=== PATIENT | female | born 1950 | race Caucasian/White ===

== ENCOUNTER 2019-12-13 17:25 | Outpatient (CLI) | payer MEDICARE, SELFPAY ==
--- NOTE | ~2019-12-13 | XR_ITS ---
XR lumbar spine min 4V 12/13/2019 17:58 Indication: Low back pain. Recent fall. Procedure: 5 views lumbar spine Comparison: 04/29/2009 Findings: There is levoscoliosis centered at L3. There are facet degenerative changes at L2-3 through L5-S1. There is grade 1 degenerative spondylolisthesis at L4-5. There is disc narrowing at L4-5 and L5-S1. No acute fracture or traumatic malalignment is identified. Impression: 1: Moderate lumbar spondylosis with levoscoliosis. Reviewed, dictated and finalized at location A. Impression: 1: Moderate lumbar spondylosis with levoscoliosis.
--- NOTE | ~2019-12-13 | XR_ITS ---
XR hip LT 2V w AP pelvis 12/13/2019 17:58 Indication: Sciatica. Recent fall. Low back pain. Procedure: 3 views left hip including AP pelvis Comparison: No prior studies for comparison. Findings: There is lower lumbar spondylosis. There is osteitis pubis. No acute fracture or traumatic malalignment. Pelvic rings are intact. Sacral foramen are symmetric. No focal soft tissue abnormality . No foreign bodies. Impression: 1: No acute fracture. Reviewed, dictated and finalized at location A. Impression: 1: No acute fracture.
== END 2019-12-13 17:26 | disposition home or self-care (01) ==
PROVIDERS: PCP Family Medicine; Visit Provider Family Medicine
DX: M46.1 Sacroiliitis, not elsewhere classified (principal); M54.32 Sciatica, left side; M47.816 Spondylosis without myelopathy or radiculopathy, lumbar region; M41.86 Other forms of scoliosis, lumbar region
CPT/HCPCS: 72110; 73502

== ENCOUNTER 2020-02-11 13:14 | Outpatient (CLI) | payer MEDICARE, SELFPAY ==
--- NOTE | ~2020-02-11 | DEXA_ITS ---
Bone Density Report Name: Natalia Newman Age: 69 Sex: Female Ethnicity: White Date of : 1950 Indication: osteopenia; height loss;postmenopausal Referring Provider: Pattie Simpson Study: Bone densitometry was performed. Exam Date: February 11, 2020 Accession number: [id number] Bone Density: Region BMD T-score Z-score Classification AP Spine (L1-L4) 0.860 -1.7 0.4 Osteopenia Femoral Neck (Left) 0.676 -1.6 0.3 Osteopenia Total Hip (Left) 0.834 -0.9 0.6 Normal Total Hip Bilateral Avg 0.848 -0.8 0.8 Normal Femoral Neck (Right) 0.688 -1.4 0.4 Osteopenia Total Hip (Right) 0.861 -0.7 0.9 Normal World Health Organization criteria for BMD impression classify patients as: Normal (T-score at or above -1.0), Osteopenia (T-score between -1.0 and -2.5), or Osteoporosis (T-score at or below -2.5). 10-year Fracture Risk(1): Major Osteoporotic Fracture 9.8% Hip Fracture 1.4% Reported Risk Factors: [place] (), Neck BMD=0.676, BMI=29.7 (1) FRAX(R) Version 3.08. Fracture probability calculated for an untreated patient. Fracture probability may be lower if the patient has received treatment. Previous Exams: Region Exam Age BMD T-score BMD Change BMD Change Date g/cm2 vs Baseline vs Previous AP Spine(L1-L4) 02/11/2020 69 0.860 -1.7 -0.014(-1.5%)# 0.041(5.0%)* 02/17/2017 66 0.820 -2.1 -0.054(-6.2%)# -0.019(-2.2%)# 01/27/2012 61 0.838 -1.9 -0.036(-4.1%)# -0.003(-0.4%)# 06/17/2007 56 0.841 -1.9 -0.033(-3.7%)* -0.033(-3.7%)* 10/06/2002 52 0.874 -1.6 Total Hip(Left) 02/11/2020 69 0.834 -0.9 N/A -2.8% 02/17/2017 66 0.857 -0.7 N/A -2.8%# 01/27/2012 61 0.882 -0.5 N/A 0.3%# 06/17/2007 56 0.879 -0.5 N/A N/A 10/06/2002 52 N/A N/A Total Hip(Right) 02/11/2020 69 0.861 -0.7 -0.014(-1.6%)# -0.016(-1.8%) 02/17/2017 66 0.877 -0.5 0.002(0.2%)# 0.002(0.2%)# 01/27/2012 61 0.876 -0.5 0.000(0.0%)# -0.003(-0.3%)# 06/17/2007 56 0.878 -0.5 0.003(0.3%) 0.003(0.3%) 10/06/2002 52 0.875 -0.5 *Denotes significance at 95% confidence level, LSC for AP Spine = 0.022 g/cm2, LSC for Total Hip = 0.027 g/cm2 Clinical Information Provided by Patient: Has used the following medications: Calcium Patient maximum height was 62 Menopause Age: 49 Does not regularly consume dairy products Drinks caffeinated beverages Onset of menses at age 13 Number of children
--- NOTE | ~2020-02-11 | MM_ITS ---
EXAMINATION: MM diagnostic brooklynn RT w carmine HISTORY: Follow-up right breast mass TECHNIQUE: Additional 3-D tomosynthesis images of the right breast were performed and synthetic 2-D i mages were generated. CAD analysis was submitted and interpreted. High resolution right breast ultras ound was performed. COMPARISON: Comparison to multiple prior studies sequentially, with oldest reviewed study dated 11/08. FINDINGS: MAMMOGRAPHIC FINDINGS: Breast composed of scattered areas of fibroglandular density. Stable 4 mm radiolucent mass in the sub areolar location of the right breast, best seen on CC view. ULTRASOUND: Right breast ultrasound: At 2:00 in the periareolar location there is a 2 mm cyst. In the subareolar location superficially th ere is a 3 mm hypoechoic mass with posterior shadowing, likely complicated cysts with milk of calcium . IMPRESSION: 1. Probable benign findings of the right breast. 2. Recommend 6 month follow-up diagnostic bilateral mammogram and right breast ultrasound. BI-RADS category 3, probably benign findings. Reviewed, dictated and finalized at location A.
--- NOTE | ~2020-02-11 | US_ITS ---
Please refer to diagnostic mammogram report dated 02/11/2020 for details. Reviewed, dictated and finalized at location A.
== END 2020-02-11 13:15 | disposition home or self-care (01) ==
PROVIDERS: PCP Family Medicine; Visit Provider Physician Assistant
DX: Z78.0 Asymptomatic menopausal state (principal); R92.8 Other abnormal and inconclusive findings on diagnostic imaging of breast; M85.88 Other specified disorders of bone density and structure, other site; M85.852 Other specified disorders of bone density and structure, left thigh; M85.851 Other specified disorders of bone density and structure, right thigh
CPT/HCPCS: 76642; 77061; 77065; 77080; G0279

== ENCOUNTER → 2021-02-28 06:39 | Outpatient (CLI) | payer MEDICARE, SELFPAY ==
[2021-02-28 16:46] LABS: SARS-CoV-2 RNA PCR Negative
== END ==
PROVIDERS: PCP Family Medicine; Visit Provider Physician Assistant Medical
DX: R68.89 Other general symptoms and signs (principal); Z20.822 Contact with and (suspected) exposure to COVID-19
CPT/HCPCS: C9803; U0003; U0005

== ENCOUNTER 2021-03-16 02:00 | Day surgery (SDC) | payer MEDICARE, SELFPAY ==
[2021-02-26 14:03] VITALS: BMI 29.1
[2021-03-16 06:34] VITALS: BP 163/80; PULSE 87; RESP 16; TEMP 36.1; O2SAT 99
[2021-03-16] MEDS: LACTATED RINGERS 1,000 ML 150 ML IV CONT (06:41)
--- NOTE | 2021-03-16 06:44 | WPDANESEPPF ---
Anes - Initial Pre Proc Eval Procedure: Operation Date: 03/16/21 07:30 Proposed Procedures p Esophagogastroduodenoscopy & Screening Colonoscopy - Dorian Amor MD Date/Time: 03/16/21 06:44 Surgeon: Dorian Amor MD Pre Op Diagnosis: hx of colon polyps, dysphagia Patient Data Age: 70 Gender: F Height: 1.55 m Weight: 71.4 kg Last Vital Signs Temp 36.1 C L 03/16/21 06:34 Pulse 87 03/16/21 06:34 Resp 16 03/16/21 06:34 BP 163/80 H 03/16/21 06:34 Pulse Ox 99 03/16/21 06:34 Allergies Allergy/AdvReac Type Severity Reaction Status Date / Time terbinafine Allergy Mild RASH Verified 03/16/21 06:32 atorvastatin AdvReac Unknown stomach Verified 03/16/21 06:32 cramps Home Medications Medication Instructions Recorded Confirmed Type rosuvastatin 10 mg tablet 10 mg PO DAILY #90 tablet 02/23/21 02/26/21 Rx Cbd 15 mg PO DAILY 02/26/21 02/26/21 History calcium carbonate-vitamin D3 1 tablet PO DAILY 02/26/21 02/26/21 History multivit with min-folic acid 1 tablet PO DAILY 02/26/21 02/26/21 History [Adult One Daily Multivitamin] omeprazole 20 mg PO DAILY 02/26/21 02/26/21 History Patient hx anesthesia problems: none Family hx anesthesia problems: none PMFSH Past Medical History Medical History Abnormal colonoscopy (~10/28/08) polyps 12/2013 colonoscopy normal except internal hemmies. repeat 5 yrs/fidencio History of bone density study (~01/27/12) History of mammogram (~11/08/14) Pap smear vag w ASC-US (~10/18/11) Family History Family History Father Diabetes mellitus Hypertension Family history of elevated blood lipids Family history of coronary artery disease Mother Depression Family history of elevated blood lipids Sibling Hypertension Family history of elevated blood lipids Cerebrovascular accident Malignant neoplasm of prostate Family history of coronary artery disease Grandparent Cerebrovascular accident Social History Social History Smoking packs per day: 0.5 Smoking cigarettes per day: 10.0 Years smoked: 5 Smoking pack-years: 2.50 Smoking status: Never smoker Tobacco type: cigarettes Alcohol intake: current Drinks per week: 5 Living arrangements: alone Spiritual care concerns: No Anes - Eval Final PreProcedure Day of Procedure 03/16/21 06:44 Patient weight: overweight Heart: regular rate and rhythm Lungs: clear to auscultation Airway: Mallampati scale class II Neurological: alert and oriented Last oral intake: >/= 8 hours ASA classification: II Emergent: no Anesthetic plan: proceed Anesthesia type and monitoring: general GIVS and standard monitoring Informed Consent: The patient's anesthetic plan and its attendant risks and benefits were discussed with the patient/family/POA. Questions were solicited and answers provided to the satisfaction of the patient/family/POA.
--- NOTE | 2021-03-16 07:30 | WPDGICN ---
Assessment and Plan Assessment and plan (1) Dysphagia: Qualifiers: Dysphagia type: pharyngoesophageal phase Qualified Code(s): R13.14 - Dysphagia, pharyngoesophageal phase Code(s): R13.10 - Dysphagia, unspecified Status: Acute Assessment and Plan: Patient is reported to have some difficulty swallowing. Particularly notices large pills. Plan is to pursue EGD given her history of ongoing acid reflux. Further recommendations will be given after endoscopy. (2) Gastroesophageal reflux disease without esophagitis: Code(s): K21.9 - Gastro-esophageal reflux disease without esophagitis Status: Acute (3) History of colon polyps: Code(s): Z86.010 - Personal history of colonic polyps Status: Acute Assessment and Plan: Patient has a prior history of colon polyps in 2013. Plan is for surveillance colonoscopy at this time. Further recommendations will be given after endoscopy GI Consult Note Consult date/time: 03/16/21 07:30 HPI: Natalia Newman is a 70 year old female Seen in evaluation at the request of Dr. Belcher. Patient has a history of colon polyps. She states that her current weight appetite bowel movements are normal. She denies abdominal pain. She has had no bleeding. Family history is noncontributory. She presents today for follow-up colonoscopy. Last exam was 7 years ago. Additionally patient complains of difficulty swallowing large pills. She was diagnosed with acid reflux approximately 1-1/2 years ago. She has had difficulty reclining and night apparently has indigestion and reflux difficulties. This is improved on taking PPI therapy she has remained on this throughout the last year. Currently she denies any heartburn. She has had no bleeding or weight loss. Review of Systems Review of Systems: All systems reviewed & are unremarkable except as noted in HPI and below [facility] Past Medical History Medical History (Updated 03/16/21 @ 07:32 by Dorian Amor MD) Abnormal colonoscopy (~10/28/08) polyps 12/2013 colonoscopy normal except internal hemmies. repeat 5 yrs/fidencio History of bone density study (~01/27/12) History of mammogram (~11/08/14) Pap smear vag w ASC-US (~10/18/11) Family History Family History Father Diabetes mellitus Hypertension Family history of elevated blood lipids Family history of coronary artery disease Mother Depression Family history of elevated blood lipids Sibling Hypertension Family history of elevated blood lipids Cerebrovascular accident Malignant neoplasm of prostate Family history of coronary artery disease Grandparent Cerebrovascular accident Social History Social History Smoking packs per day: 0.5 Smoking cigarettes per day: 10.0 Years smoked: 5 Smoking pack-years: 2.50 Smoking status: Never smoker Tobacco type: cigarettes Alcohol intake: current Drinks per week: 5 Living arrangements: alone Spiritual care concerns: No Meds Home Medications and Allergies Home Medications Medication Instructions Recorded Confirmed Type rosuvastatin 10 mg tablet 10 mg PO DAILY #90 tablet 02/23/21 02/26/21 Rx Cbd 15 mg PO DAILY 02/26/21 02/26/21 History calcium carbonate-vitamin D3 1 tablet PO DAILY 02/26/21 02/26/21 History multivit with min-folic acid 1 tablet PO DAILY 02/26/21 02/26/21 History [Adult One Daily Multivitamin] omeprazole 20 mg PO DAILY 02/26/21 02/26/21 History Allergies Allergy/AdvReac Type Severity Reaction Status Date / Time terbinafine Allergy Mild RASH Verified 03/16/21 06:32 atorvastatin AdvReac Unknown stomach Verified 03/16/21 06:32 cramps Vital Signs Vital Signs - 24 hr 03/16/21 06:34 Temperature 97.0 F L Pulse Rate 87 Respiratory Rate 16 Blood Pressure 163/80 H Pulse Oximetry 99 Exam Narrative: Physical exam
[2021-03-16 07:57] VITALS: BP 114/70; PULSE 79; O2SAT 98
[2021-03-16 08:07] VITALS: BP 120/73; PULSE 78; O2SAT 98
[2021-03-16 08:17] VITALS: BP 133/76; PULSE 78; O2SAT 98
== END 2021-03-16 08:32 | disposition home or self-care (01) ==
PROVIDERS: PCP Family Medicine; Visit Provider Internal Medicine Gastroenterology
PROC: 0DJ08ZZ Inspection of Upper Intestinal Tract, Via Natural or Artificial Opening Endoscopic (ICD-10-PCS; CPT 43235; principal; 2021-03-16 07:30)
DX: Z12.11 Encounter for screening for malignant neoplasm of colon (principal); K64.8 Other hemorrhoids; Z86.010 Personal history of colon polyps; R13.10 Dysphagia, unspecified; K21.9 Gastro-esophageal reflux disease without esophagitis
CPT/HCPCS: G0105; J2704; J7120

== ENCOUNTER 2021-03-27 15:23 | Outpatient (CLI) | payer MEDICARE, SELFPAY ==
--- NOTE | ~2021-03-27 | XR_ITS ---
EXAMINATION:XR cervical spine 4-5V DATE: 03/27/2021 15:44 INDICATION: Unspecified disturbance of skin sensation TECHNIQUE: AP, lateral, lateral swimmers and open-mouth and submental odontoid views of the cervical spine are provided. COMPARISON: None FINDINGS: Unchanged 3 mm retrolisthesis C5 on C6 and 2 mm retrolisthesis C6 on C7. Odontoid is intact. Normal atlantoaxial interval. Vertebral body heights are normal. Mild disc height loss at C4-C5 and moderate disc height loss at C5-C6 and C6-C7. There has been some interval progression of now mild to moderat e multilevel bilateral cervical facet osteoarthritis which is most prominent on the right at C3-C4. P ersistent mild central canal stenosis at C6-C7 and more prominently at C5-C6 resulting from the mild spondylolisthesis and posterior endplate osteophytes. Prevertebral soft tissues are normal. IMPRESSION: 1. Moderate cervical spondylosis with slight interval progression in now mild to moderate multilevel cervical facet osteoarthritis. Reviewed, dictated and finalized at location A. IMPRESSION: 1. Moderate cervical spondylosis with slight interval progression in now mild t o moderate multilevel cervical facet osteoarthritis.
== END 2021-03-27 15:24 | disposition home or self-care (01) ==
LOC: ANHIMG 15:28
PROVIDERS: PCP Family Medicine; Visit Provider Family Medicine
DX: R20.9 Unspecified disturbances of skin sensation (principal); M47.892 Other spondylosis, cervical region; M50.30 Other cervical disc degeneration, unspecified cervical region
CPT/HCPCS: 72050

== ENCOUNTER 2021-04-22 12:27 | Outpatient (CLI) | payer MEDICARE, SELFPAY ==
--- NOTE | ~2021-04-22 | MMUS_ITS ---
EXAMINATION: MM diagnostic brooklynn BI w carmine, US breast RT limited HISTORY: Overdue follow-up for probably benign right breast mass TECHNIQUE: Craniocaudal, mediolateral, and mediolateral oblique 3-D tomosynthesis images of the breas ts were performed and synthetic 2-D images were generated. CAD analysis was submitted and interpreted . High resolution limited right breast ultrasound was performed. COMPARISON: 02/11/2020, 05/03/2019, 04/30/2019, 03/11/2017, 03/01/2017 BREAST PARENCHYMAL COMPOSITION: There are scattered areas of fibroglandular density. FINDINGS: MAMMOGRAPHIC FINDINGS: Right breast: There is a stable 3 mm mass at the 12:00 location in the middle third of the right malaika st 3.5 cm from the nipple. There has been no suspicious interval change. Left breast: There is no evidence of suspicious mass, calcification, or architectural distortion to suggest malignancy. There has been no suspicious interval change. ULTRASOUND: There is no evidence of focal abnormal solid or cystic mass in the vicinity of the mammographic findi ng in question. IMPRESSION: 1. Right breast mass with two years of interval stability, consistent with a benign finding. 2. Recommend routine screening mammography in one year. BI-RADS Category 2: Benign finding(s). Reviewed, dictated and finalized at location B. IMPRESSION: 1. Right breast mass with two years of interval stability, consistent with a be nign finding. 2. Recommend routine screening mammography in one year. BI-RADS Category 2: Benign finding(s).
== END 2021-04-22 12:28 | disposition home or self-care (01) ==
PROVIDERS: PCP Family Medicine; Visit Provider Family Medicine
DX: R92.8 Other abnormal and inconclusive findings on diagnostic imaging of breast (principal)
CPT/HCPCS: 76642; 77062; 77066; G0279

== ENCOUNTER 2021-09-30 08:34 | Outpatient (CLI) | payer MEDICARE, SELFPAY ==
--- NOTE | 2021-10-05 13:26 | WPDHOLTEREM ---
Holter/Event Monitor Holter/Event Monitor Date of procedure: 09/30/21 Holter/Event Procedure: 48 Hr Holter Monitor Indications: Palpitations, SOB Conclusion: 1. 48 hour holter monitor on 09/30/21. 2. Predominant rhythm is sinus rhythm. HR range 52-109 bpm; average HR 72 bpm. 3. There are 50 premature supraventricular complexes and 1 supraventricular couplet. There are 2 episodes of atrial tachycardia, fastest at 164 bpm and longest lasting 4 beats. 4. There is 1 premature ventricular complex. No ventricular tachycardia. 5. No sinoatrial or atrioventricular blocks. No significant pauses greater than 2 seconds. 6. No symptoms available for correlation.
== END 2021-09-30 08:35 | disposition home or self-care (01) ==
PROVIDERS: PCP Family Medicine; Visit Provider Family Medicine
DX: R00.2 Palpitations (principal); R73.03 Prediabetes; E78.2 Mixed hyperlipidemia; E66.09 Other obesity due to excess calories
CPT/HCPCS: 93225; 93226

== ENCOUNTER 2021-10-07 07:04 | Outpatient (CLI) | payer MEDICARE, SELFPAY ==
--- NOTE | 2021-10-07 | EST_ITS ---
Patient Info Name: Natalia Newman Age: 71 years : 1950 Gender: Female Ht: 60 in Wt: 158 lbs BSA: 1.77 m2 HR: 66 bpm BP: 150 / 82 mmHg Heart Rhythm: Sinus Rhythm Exam Date: 10/07/2021 8:17 AM Exam Location: [facility] Stress Patient Status: Outpatient Admit Date: 10/07/2021 Staff Ordering Physician: Corina Belcher MD Attending Provider: Corina Belcher MD Exercise Technologist: Julieth Merida CT Exercise Physician: Gen James DO Exam Type: CA stress kaity w NM Study Info Indications R00.2 - Palpitations A regadenoson stress test was performed. Summary 1. 1. Abnormal Lexiscan stress test for ischemic ST changes by ECG criteria. 2. 2. Baseline hypertension. 3. 3. Nuclear scan to follow and will be reported separately. Please correlate with it. 4. 4. Patient informed of the above results. Protocol: Lexiscan Stress ECG Details Stage: REST Duration (min): 1 min : 21 sec HR (bpm): 78 SBP (mmHg): 150 DBP (mmHg): 82 Stage: REST Duration (min): 4 min : 46 sec HR (bpm): 63 SBP (mmHg): 150 DBP (mmHg): 82 Stage: REST Duration (min): 19 min : 20 sec HR (bpm): 68 SBP (mmHg): 150 DBP (mmHg): 82 Stage: STAGE 1 Duration (min): 1 min : 0 sec HR (bpm): 100 SBP (mmHg): 150 DBP (mmHg): 82 Stage: RECOVERY Duration (min): 1 min : 0 sec HR (bpm): 90 SBP (mmHg): 164 DBP (mmHg): 75 Stage: RECOVERY Duration (min): 2 min : 0 sec HR (bpm): 81 SBP (mmHg): 164 DBP (mmHg): 75 Stage: RECOVERY Duration (min): 3 min : 0 sec HR (bpm): 80 SBP (mmHg): 150 DBP (mmHg): 76 Stage: RECOVERY Duration (min): 3 min : 7 sec HR (bpm): 80 SBP (mmHg): 150 DBP (mmHg): 76 Rest HR: 68 bpm Peak HR: 100 bpm Rest Sys BP: 150 mmHg Peak Sys BP: 164 mmHg Max Pred HR: 148 bpm % Max Pred HR: 68 % Target HR: 126 bpm Max RPP: 16,400 bpm*mmHg Termination Reason: Completed protocol Cardiac Symptoms: Shortness of breath Total Time: 1 min : 0 sec Rest Jasso BP: 82 mmHg Peak Jasso BP: 75 mmHg Total Dose: 0.4 mg Resting ECG Sinus rhythm. Stress ECG 1-[address] depression in II, III, avF, V3-V6. Arrhythmias None. Report Signatures
--- NOTE | ~2021-10-07 | NM_ITS ---
EXAMINATION: NM kaity stress w perfusion DATE: 10/07/2021 10:40 COSTUME SPECIALIST INDICATION: Shortness of breath. Chest palpitations TECHNIQUE: Rest images were obtained following intravenous administration of 10.5 mCi Tc99m tetrofosm in (Myoview). The patient was infused intravenously with Lexiscan (regadenoson). Then, 31 mCi Tc99m t etrofosmin (Myoview) was administered intravenously, and stress images were obtained. Data was recons tructed into short axis and horizontal and vertical long axis SPECT images. Gated SPECT images were a lso obtained. COMPARISON: None. FINDINGS: There is no definite reversible or fixed perfusion abnormality to suggest ischemia or infar ction. There is no segmental wall motion abnormality. Left ventricular ejection fraction measures 6 9%. IMPRESSION: 1. No definite ischemia or infarct. 2. Normal left ventricular ejection fraction measuring 69%. Reviewed, dictated and finalized at location B. UME SPECIALIST
== END 2021-10-07 07:05 | disposition home or self-care (01) ==
PROVIDERS: PCP Family Medicine; Visit Provider Family Medicine
DX: R00.2 Palpitations (principal); R73.03 Prediabetes; R94.31 Abnormal electrocardiogram [ECG] [EKG]; E78.2 Mixed hyperlipidemia; E66.09 Other obesity due to excess calories; Z82.49 Family history of ischemic heart disease and other diseases of the circulatory system
CPT/HCPCS: 78452; 93017; A9502; J2785

== ENCOUNTER 2022-12-20 14:38 | Outpatient (CLI) | payer MEDICARE, SELFPAY ==
--- NOTE | ~2022-12-20 | MM_ITS ---
EXAMINATION: MM screening [facility] BI w carmine HISTORY: Screening mammogram TECHNIQUE: Craniocaudal and mediolateral oblique 3-D tomosynthesis images were obtained and synthetic 2-D images were generated. CAD analysis was submitted and interpreted. COMPARISON: 04/22/2021, 02/11/2020, 05/03/2019, 04/30/2019, 03/01/2017 BREAST PARENCHYMAL COMPOSITION: There are scattered areas of fibroglandular density. FINDINGS: No suspicious mass, calcification, or architectural distortion are identified in either sarah ast to suggest malignancy. There has been no suspicious interval change. IMPRESSION: 1. No mammographic evidence of malignancy. 2. Recommend routine screening mammography in one year. BI-RADS Category 1: Negative Reviewed, dictated and finalized at location A.
--- NOTE | ~2022-12-20 | DEXA_ITS ---
Bone Density Report Name: SHANNON GOODMAN Age: 72 Sex: Female Ethnicity: White Date of : 1950 Indication: osteopenia; height loss; cancer; postmenopausal Referring Provider: LOUISE MOULTON Study: Bone densitometry was performed. Exam Date: December 20, 2022 Accession number: [id number] Bone Density: Region BMD T-score Z-score Classification AP Spine(L1-L4) 0.865 -1.7 0.6 Osteopenia Femoral Neck (Left) 0.688 -1.5 0.5 Osteopenia Total Hip (Left) 0.851 -0.7 0.9 Normal Femoral Neck (Right) 0.688 -1.5 0.5 Osteopenia Total Hip (Right) 0.848 -0.8 0.9 Normal Total Hip Mean 0.849 -0.8 0.9 Normal World Health Organization criteria for BMD impression classify patients as: Normal (T-score at or above -1.0), Osteopenia (T-score between -1.0 and -2.5), or Osteoporosis (T-score at or below -2.5). 10-year Fracture Risk(1): Major Osteoporotic Fracture 10% Hip Fracture 1.7% Reported Risk Factors: [place] (), Neck BMD=0.688, BMI=29.3 (1) FRAX(R) Version 3.08. Fracture probability calculated for an untreated patient. Fracture probability may be lower if the patient has received treatment. Previous Exams: Region Exam Age BMD T-score BMD Change BMD Change Date g/cm2 vs Baseline vs Previous AP Spine (L1-L4) 12/20/2022 72 0.865 -1.7 0.026 (3.1%)# 0.004 (0.5%) 02/11/2020 69 0.860 -1.7 0.022 (2.7%)# 0.041 (5.0%)* 02/17/2017 66 0.820 -2.1 -0.019 (-2.2%) -0.019 (-2.2%) 01/27/2012 61 0.838 -1.9 Total Hip(Left) 12/20/2022 72 0.851 -0.7 -0.031 (-3.6%) 0.017 (2.0%) 02/11/2020 69 0.834 -0.9 -0.048 (-5.5%) -0.024 (-2.8%) 02/17/2017 66 0.857 -0.7 -0.025 (-2.8%) -0.025 (-2.8%) 01/27/2012 61 0.882 -0.5 Total Hip(Right) 12/20/2022 72 0.848 -0.8 -0.028 (-3.1%) -0.013 (-1.5%) 02/11/2020 69 0.861 -0.7 -0.015 (-1.7%) -0.016 (-1.8%) 02/17/2017 66 0.877 -0.5 0.002 (0.2%)# 0.002 (0.2%)# 01/27/2012 61 0.876 -0.5 *Denotes significance at 95% confidence level, LSC for AP Spine = 0.022 g/cm2, LSC for Total Hip = 0.027 g/cm2 # Denotes dissimilar scan types or analysis methods Clinical Information Provided by Patient: Has used the following medications: Vitamin D, Calcium Has the following medical conditions: Cancer Patient maximum height was 62 Menopause Age: 49 Drinks caffeinated beverages Onset of menses at age 13 Number of children 3 Impression: The patient bledsoe
== END 2022-12-20 14:39 | disposition home or self-care (01) ==
LOC: ANHIMG 14:39
PROVIDERS: PCP Family Medicine; Visit Provider Physician Assistant
DX: Z12.31 Encounter for screening mammogram for malignant neoplasm of breast (principal); Z78.0 Asymptomatic menopausal state; M85.88 Other specified disorders of bone density and structure, other site; M85.852 Other specified disorders of bone density and structure, left thigh; M85.851 Other specified disorders of bone density and structure, right thigh
CPT/HCPCS: 77063; 77067; 77080

== ENCOUNTER 2025-02-21 13:47 | Outpatient (CLI) | payer MEDICARE, SELFPAY ==
--- OUTSIDE RECORDS SUMMARY | 2025-02-21 13:53 | XMS_ITS | Referral Summary ---
Author [place] [facility] [place] [address] Address [address] [place] [id number] Care Team Providers Care Nuclear Process Engineer Name Role Phone Corina Belcher MD Primary Care Provider + Encounters Date Type Department Care Team Description 01/23/2025 Orders Only [facility] Medical [facility] Orthopedic and Sports Medicine [address] [place] [phone] Jose Weeks MD Nontraumatic complete tear of right rotator cuff (Primary Dx); Nontraumatic tear of left rotator cuff, unspecified tear extent; Biceps tendinitis of left upper extremity; Arthritis of both acromioclavicular joints 01/23/2025 Orders Only [facility] Orthopedic [facility] Sports Medicine [address] [place] [phone] Jose Weeks MD Nontraumatic tear of left rotator cuff, unspecified tear extent (Primary Dx); Nontraumatic complete tear of right rotator cuff; Biceps tendinitis of left upper extremity; Arthritis of both acromioclavicular joints 01/23/2025 Orders Only [facility] Orthopedic [facility] Sports Medicine [address] [place] [phone] Jose Weeks MD 01/23/2025 1:00 PM CDT Office Visit [facility] Medical [facility] Orthopedic and Sports Medicine [address] [place] [phone] Jose Weeks MD Nontraumatic tear of left rotator cuff, unspecified tear extent (Primary Dx); Nontraumatic complete tear of right rotator cuff from Last 3 Months Allergies Active Allergy Reactions Criticality Noted Date Comments Unclassified Drug Stomach upset Low 10/14/2023 Antibotic Medications omeprazole (PriLOSEC) 20 mg capsule 1 Active rosuvastatin (CRESTOR) 10 mg tablet 1 Active metoprolol tartrate (LOPRESSOR) 25 mg immediate release tablet Take 0.5 tablets (12.5 mg total) by mouth 2 (two) times a day 2 Active sertraline (ZOLOFT) 25 mg tablet Take 1 tablet (25 mg total) by mouth daily 2 Active albuterol (PROAIR RESPICLICK) 90 mcg/actuation inhaler Inhale 2 puffs every 6 (six) hours as needed for wheezing Active aspirin 81 mg enteric coated tablet Take 1 tablet (81 mg total) by mouth daily Active UNABLE TO FIND Take 50 each by mouth daily Med Name: CBD Active diclofenac epolamine (FLECTOR) 1.3 %Indications:S prains and Strains Place 1 patch on the skin Active multivit with min-folic acid 0.4 mg tablet Take by mouth Active predniSONE (DELTASONE) 50 mg tablet 5 Active meloxicam (MOBIC) 15 mg tablet Take 1 tablet (15 mg total) by mouth daily 42 tablet [address] (VOLTAREN) 75 mg EC tablet Take 1 tablet (75 mg total) by mouth 2 (two) times a day 60 tablet 4 025 Discontinued Active Problems Problem Noted Date Diagnosed Date Palpitations 10/14/2023 Hyperlipidemia 10/14/2023 Carpal tunnel syndrome 03/04/2011 Social History Tobacco Use Types Packs/Day Years Used Date Smoking Tobacco: Never Smokeless Tobacco: Never AUDIT-C Answer Date Recorded Q1: How often do you have a drink containing alc ohol? 2-4 times a month 08/22/2021 Average Number of Drinks Not on file 022 Frequency of Binge Drinking Not on file 03/2022 Comments Unknown Sex and Gender Information Value Date Recorded Sex Assigned at Not on file Legal Sex Female 8:48 AM TALENT SCOUT Gender Identity Female 12/07/2024 9:42 PM CDT Sexual Orientation Not on file Last Filed Vital Signs Vital Sign Reading Time Taken Comments Blood Pressure 132/71 01/23/2025 12:56 PM CDT Pulse 84 01/23/2025 12:56 PM CDT Temperature 37 C (98.6 F) 09/28/2024 4:00 PM TALENT SCOUT Respiratory Rate 20 09/28/2024 4:00 PM TALENT SCOUT Oxygen Saturation 98% 09/28/2024 4:00 PM TALENT SCOUT Inhaled Oxygen Concentration - - Weight 71.2 kg (157 lb) 01/23/2025 12:56 PM CDT Height 154.9 cm (5' 1) 01/23/2025 12:56 PM CDT Body Mass Index 29.66 01/23/2025 12:56 PM CDT Plan of Treatment Not on file Insurance UHC MEDICARE ADVANTAGE [facility] MEDICARE Care Teams Nuclear Process Engineer Relationship Specialty Start Date End Date Corina Belcher MD PCP - General Family Medicine 03/12/22
--- OUTSIDE RECORDS SUMMARY | 2025-02-21 13:53 | XMS_ITS | Clinical Summary ---
Author Organization [facility] [address] Address [address] [place] [phone] Care Team Providers Care Digital Computer Systems Analyst Name Role Phone Corina Belcher MD Primary Care Provider + Allergies Active Allergy Reactions Criticality Noted Date [...] 10/14/2023 Hyperlipidemia 10/14/2023 Carpal tunnel syndrome 03/04/2011 Encounters Date Type Department Care Team Description 01/23/2025 1:00 PM CDT Office Visit [facility] Orthopedic and Sports Medicine [address] [place] [phone] Jose Weeks MD Nontraumatic tear of left rotator cuff, unspecified tear extent (Primary Dx); Nontraumatic complete tear of right rotator cuff 01/23/2025 Orders Only [facility] Orthopedic [facility] Sports Medicine [address] [place] [phone] Jose Weeks MD Nontraumatic complete tear of right rotator cuff (Primary Dx); Nontraumatic tear of left rotator cuff, unspecified tear extent; Biceps tendinitis of left upper extremity; Arthritis of both acromioclavicular joints 01/23/2025 Orders Only [facility] Orthopedic and Sports Medicine [address] [place] [phone] Jose Weeks MD Nontraumatic tear of left rotator cuff, unspecified tear extent (Primary Dx); Nontraumatic complete tear of right rotator cuff; Biceps tendinitis of left upper extremity; Arthritis of both acromioclavicular joints 01/23/2025 Orders Only [facility] Orthopedic [facility] Sports Medicine [address] [place] [phone] Jose Weeks MD from Last 3 Months Surgical History Surgery Date Site/Laterality Comments CARPAL TUNNEL RELEASE Medical History Medical History Date Comments Osteoarthritis Cataracts, bilateral Anxiety Osteoarthritis Family History Medical History Relation Name Comments Heart disease Father Hypertension Sister Relation Name Status Comments Father Sister Alive Social History Tobacco Use Types Packs/Day Years [...] on file Legal Sex Female 8:48 AM IS MANAGER Gender Identity Female 12/07/2024 9:42 PM CDT Sexual Orientation Not on file Obstetrics History Last Filed Vital Signs Vital Sign Reading Time Taken Comments Blood Pressure 132/71 01/23/2025 12:56 PM CDT Pulse 84 01/23/2025 12:56 PM CDT Temperature 37 C (98.6 F) 09/28/2024 4:00 PM IS MANAGER Respiratory Rate 20 09/28/2024 4:00 PM IS MANAGER Oxygen Saturation 98% 09/28/2024 4:00 PM IS MANAGER Inhaled Oxygen Concentration - - Weight 71.2 kg (157 lb) 01/23/2025 12:56 PM CDT Height 154.9 cm (5' 1) 01/23/2025 12:56 PM CDT Body Mass Index 29.66 01/23/2025 12:56 PM CDT Plan of Treatment Health Maintenance Due Date Last Done Comments Colon Cancer Screening-Colonoscopy 1949 Depression Screening 1949 Fall Risk Assessment 1949 Hepatitis C Screening 1949 Osteoporosis Screening-Bone Density Scan 1949 Hepatitis B Screening 1967 Pneumococcal vaccine 65+ (1 of 1 - PCV) 1999 Zoster Vaccine (1 of 2) 1999 DTaP/Tdap/Td Vaccine (1 - Tdap) 07/11/2001 1 Well Visit 65+ 2014 Covid-19 Vaccine ( season) 2024 04/15/2021, 10/12/2020, 09/20/2020 Influenza Vaccine (Season Ended) 2025 05/10/2020, 04/25/2019, 05/24/2018 Insurance UHC MEDICARE ADVANTAGE [facility]LY [facility] MEDICARE Care Teams Digital Computer Systems Analyst Relationship Specialty Start Date End Date Corina Belcher MD PCP - General Family Medicine 03/12/22
--- OUTSIDE RECORDS SUMMARY | 2025-02-21 13:53 | XMS_ITS | Clinical Summary ---
Author Organization [facility] Care Team Providers Care Fiberglass Boat Finisher Name Role Phone Unavailable Primary Care Provider Unavailabl e Social History Tobacco Use Types Packs/Day Years Used Date Smoking Tobacco: Never Assessed Comments Unknown Sex and Gender Information Value Date Recorded Sex Assigned at Not on file Legal Sex Female 10:47 PM CDT Gender Identity Not on file Sexual Orientation Not on file Plan of Treatment Health Maintenance Due Date Last Done Comments DEXA Bone Density 1950 Hepatitis C Virus (HCV) Screening 1949 TdaP Immunization 1949 Colonoscopy 1994 Colorectal Cancer Screening 1994 Cologuard 1999 Immunochemical Fecal Occult Blood 1999 Mammogram 1999 Pneumococcal Immunization (50+ years) (1 of 1 - PCV) 1999 Zoster Immunization (1 of 2) 1999 Influenza Immunization (#1) 2024 SARS-COV-2 Immunization ( season) 2024 11/21/2021, 04/15/2021, 10/12/2020, Additional history exists Respiratory Syncytial Virus (RSV) Immunization (Adult) (1 - 1-dose 75+ series) 2024 Hepatitis B Immunization Aged Out No longer eligible based on patient's age to complete this topic Meningococcal Immunization (ACWY) Aged Out No longer eligible based on patient's age to complete this topic Rotavirus Immunization Aged Out No lo nger eligible based on patient's age to complete this topic
[2025-02-21 22:06] LABS: Vitamin B12 506.0 pg/mL (239-931)
== END 2025-02-21 13:48 | disposition home or self-care (01) ==
LOC: ANHGOSHLAB 13:48
PROVIDERS: PCP Family Medicine; Visit Provider Family Medicine
DX: G62.9 Polyneuropathy, unspecified (principal)
CPT/HCPCS: 36415; 82607

== ENCOUNTER 2025-02-21 14:00 | Outpatient (CLI) | payer MEDICARE, SELFPAY ==
--- NOTE | ~2025-02-21 | XR_ITS ---
Lumbosacral Spine: AP, oblique, and lateral views Clinical History: Pain Findings: There is mild levoscoliosis. There is 13 mm anterolisthesis of L4 over L5. There is severe facet arthropathy throughout the lumbar spine. There are minimal degenerative disc changes. The sacro iliac joints are normally outlined. Impression: 13 mm anterolisthesis of L4 over L5. Diffuse, severe facet arthropathy. Reviewed, dictated and finalized at location . Impression: 13 mm anterolisthesis of L4 over L5. Diffuse, severe facet arthropathy.
--- NOTE | ~2025-02-21 | XR_ITS ---
EXAM/ PROCEDURE: XR hip RT 2V w AP pelvis - 02/21/2025 14:15 CDT HISTORY: 74 years old Female with M25.551 - Pain in right hip COMPARISON: None available TECHNIQUE: Three view(s) FINDINGS/ IMPRESSION: There are no fractures or dislocations.Joint space narrowing, subchondral sclerosis, subchondral cyst formation and osteophyte formation, compatible with mild osteoarthritis. Reviewed, dictated and finalized at location A.
== END 2025-02-21 14:01 | disposition home or self-care (01) ==
LOC: GOSHIMG 14:00
PROVIDERS: PCP Family Medicine; Visit Provider Family Medicine
DX: M25.551 Pain in right hip (principal); G62.9 Polyneuropathy, unspecified
CPT/HCPCS: 72110; 73502

== ENCOUNTER 2025-08-02 14:47 | Emergency (ER) | payer MEDICARE, SELFPAY ==
[2025-08-02 15:01] VITALS: BP 139/74; PULSE 71; RESP 16; TEMP 36.2; O2SAT 99
--- NOTE | 2025-08-02 15:31 | ED.URI ---
HPI - URI/Sore Throat General Chief Complaint: Upper Respiratory Infection Stated Complaint: URI Symptoms Time Seen by Provider: 08/02/25 15:22 Source: patient Mode of arrival: ambulatory Limitations: no limitations History of Present Illness HPI Narrative: 75 y/o female presented for c/o cough, nasal congestion and drainage. Onset 4 days. Symptoms worsened after onset when she flew to [facility] and was exposed to cigarette smoke frequently. Tested negative for covid yesterday. Taking tylenol cold med and drank hot toddy. denies cp, palpitations, n/v/d/f/c. Related Data Home Medications ?Medication ?Instructions ?Recorded ?Confirmed ?Last Taken ?Type calcium 500 mg (as 1 tablet PO DAILY 02/26/21 05/19/25 03/15/21 History carbonate)-vitamin D3 10 mcg (400 unit) tablet aspirin 81 mg tablet,delayed 81 mg PO DAILY 09/20/22 05/19/25 Unknown History release (Adult Aspirin Regimen) Allergies Allergy/AdvReac Type Severity Reaction Status Date / Time terbinafine Allergy Mild RASH Verified 08/02/25 15:10 atorvastatin AdvReac Unknown stomach Verified 08/02/25 15:10 cramps Review of Systems Review of Systems: per HPI All systems reviewed & are unremarkable except as noted in HPI and below PMFSH Past Medical History Medical History Elevated blood pressure reading Migraine, unspecified, not intractable, without status migrainosus Torn rotator cuff Sciatica, right side History of colon polyps Sensory problems with limbs Abnormal findings on diagnostic imaging of breast Sacroiliac inflammation Sciatica, left side Congenital pes planus Abnormal colonoscopy (~10/28/08) polyps 12/2013 colonoscopy normal except internal hemmies. repeat 5 yrs/fedder Pap smear vag w ASC-US (~10/18/11) History of bone density study (~01/27/12) History of mammogram (~11/08/14) Family History Family History Father Diabetes mellitus Hypertension Family history of elevated blood lipids Family history of coronary artery disease Mother Depression Family history of elevated blood lipids Sibling Hypertension Family history of elevated blood lipids Cerebrovascular accident Malignant neoplasm of prostate Family history of coronary artery disease Grandparent Cerebrovascular accident Social History Social History Smoking status: Never smoker Alcohol intake: current Alcohol use details: occasionally Substance use: former Substance use type: marijuana Lack of Transportation: No Lack of Food: Never True Current Housing: I Have Housing Concerned About Future Housing: No Difficulty Paying Gas/Electric Bills: No Difficulty Paying for Meds: No Currently Unemployed: No Education: Master's Degree or Higher Difficulty w/ Childcare or Family Care: No Living arrangements: alone Occupation/Education: retired Gender identity (if verbalized by the patient): Female Spiritual care concerns: No Comments At time of signature, I have reviewed and agree with nursing past medical, surgical, social and family history unless otherwise noted. Please see nursing chart for further information. There is no relevant family history pertinent to the presenting complaint Exam Narrative: GENERAL: Well-appearing, in no acute distress. EYES: EOMI. No redness or drainage. Conjunctivae normal. ENT: Mucous membranes pink and moist. No rhinorrhea. TMs normal bilaterally. Throat normal. Uvula midline. NECK: Normal AROM. Supple. CHEST: No respiratory distress. Lungs clear to all velasquez. Frequent harsh radiology teacher cough HEART: Regular rate and rhythm. No murmur appreciated. ABDOMEN: Soft, nontender, nondistended, normal active bowel sounds. EXTREMITIES: Normal range of motion. No edema. SKIN: Warm, dry, no rash. Capillary refill normal. Normal skin turgor. NEURO: Alert and oriented x3. Gait steady. PSYCH: Normal affect. Course Course Level of Care: Express Care Visit Vital Signs Vital signs: Vital Signs Temperature 97.2 F L 08/02/25 15:01 Pulse Rate 71 08/02/25 15:01 Respiratory Rate 16 08/02/25 15:01 Blood Pressure 139/74 08/02/25 15:01 Pulse Oximetry 99 08/02/25 15:01 Temperature 97.2 F L 08/02/25 15:01 Pulse Rate 71 08/02/25 15:01 Respiratory Rate 16 08/02/25 15:01 Blood Pressure 139/74 08/02/25 15:01 Pulse Oximetry 99 08/02/25 15:01 Oxygen Delivery Room Air 08/02/25 15:16 MDM MDM Narrative Medical decision making narrative: Discussed physical exam findings. Advised supportive measures and signs/symptoms to go to the ER. Pt is appropriate for outpt treatment and f/u. Differential Diagnosis Differential Diagnosis: Influenza, covid, sinusitis, OM, strep pharyngitis, URI, bronchitis, pneumonia Discharge Plan Discharge Clinical Impression: Bronchitis Patient Disposition: Home Condition: Stable Instructions: Acute Bronchitis (ED) Additional Instructions: Acute bronchitis can be contagious because it is usually caused by infection with a virus or bacteria. It is usually for a few days but you can be contagious for up to one week. Avoid crowds until you do not have a fever and symptoms are improved Take medication as directed (You have inhaler and cough syrup previously prescribed) Recommend Flonase spray and Zyrtec (or Claritin/Elena) Prescription Cough syrup may cause drowsiness; avoid driving or take it at night time. Tylenol every 8 hours as needed for pain Symptomatic treatment includes: rest, fluids, and increase humidity of the air at home. Follow up with your primary care provider as needed in 3 days Go to the ER for worsening symptoms or concerns Patient Language: Danish Prescriptions: New prednisone 20 mg tablet 40 mg PO DAILY 5 Days Qty: 10 0RF No Action aspirin [Adult Aspirin Regimen] 81 mg tablet,delayed release (DR/EC) 81 mg PO DAILY (DME) blood pressure kit See Rx Instructions .Route .MEDSUPPLY Qty: 1 0RF Rx Instructions: automatic blood pressure cuff calcium carbonate-vitamin D3 500 mg(1,250mg) -400 unit Tablet 1 tablet PO DAILY diclofenac epolamine 1.3 % patch 12 hour 1 patch topical BID Qty: 30 0RF metoprolol tartrate 25 mg tablet 25 mg PO DAILY Qty: 90 1RF albuterol sulfate 90 mcg/actuation HFA aerosol inhaler 2 inh INHALATION Q4H PRN (Reason: shortness of breath or wheezing) Qty: 8.5 1RF (DME) VHC/Spacer See Rx Instructions .Route .MEDSUPPLY Qty: 1 0RF Rx Instructions: She is needing a spacer for her inhaler. sertraline 25 mg tablet See Rx Instructions .ROUTE .COMPLEX Qty: 90 1RF Dose Instruction: TAKE 1 TABLET BY MOUTH EVERY DAY Rx Instructions: TAKE 1 TABLET BY MOUTH EVERY DAY omeprazole 20 mg capsule,delayed release(DR/EC) See Rx Instructions .ROUTE .COMPLEX Qty: 90 1RF Dose Instruction: TAKE 1 CAPSULE BY MOUTH DAILY Rx Instructions: TAKE 1 CAPSULE BY MOUTH DAILY rosuvastatin 10 mg tablet 10 mg PO DAILY Qty: 90 1RF Follow-up/Referrals: Corina Belcher MD [Primary Care Provider, [facility]] Time of Disposition: 15:44
== END 2025-08-02 15:50 | disposition home or self-care (01) ==
PROVIDERS: Emergency Provider Nurse Practitioner Family; PCP Family Medicine
DX: J40 Bronchitis, not specified as acute or chronic (principal); Z79.82 Long term (current) use of aspirin
CPT/HCPCS: 99213; G0463